=== PATIENT | male | born 1995 | race African-American/Black ===

== ENCOUNTER 2022-04-24 13:36 | Emergency (ER) | payer SELFPAY ==
[~2022-04-24] VITALS: Ht 180.3 cm; Wt 86.3 kg
[2022-04-24 13:55] VITALS: BP 118/75
[2022-04-24 14:00] VITALS: BP 119/75
[2022-04-24 14:15] VITALS: BP 119/66
[2022-04-24 14:30] VITALS: BP 103/62
[2022-04-24 14:46] VITALS: BP 110/50
[2022-04-24 14:49] VITALS: BP 110/50
== END 2022-04-24 14:56 | disposition home or self-care (01) | DRG 556 ==
LOC: ED 13:36
DX: M79.672 Pain in left foot (principal); M79.671 Pain in right foot